=== PATIENT | male | born 1950 | race Caucasian/White ===

== ENCOUNTER 2019-02-01 20:41 | Inpatient (IN) | payer MEDICARE, OTHER ==
[~2019-02-01] VITALS: Ht 162.6 cm; Wt 77.6 kg
[~2019-02-01 20:41] MED LIST: ASPI-817 PO; ASPI325T29 PO; ATEN50TA PO; ATOR10TA65 PO; ATOR40TA68 PO; CHOL100062 PO; EMPA25TA PO; FER325 PO; FLUT16SP17 NASAL; GABA300C16 PO; LEVO750T25 PO; LORA10TA3 PO; LOSA25TA2 PO; LOSA50TA14 PO; MELO7.5O PO; METO-448 PO; PANT40TA4 PO; SERT50TA6 PO; SITA1TAB5 PO; TAMS-14 PO
[2019-02-01 20:43] VITALS: Ht 162.6 cm; Wt 77.6 kg
[2019-02-01] MEDS ORDERED: ASPIRIN 325 MG TAB PO STA (20:59)
[2019-02-01] MEDS ORDERED: ONDANSETRON 4 MG INJ IV STA (20:59)
[2019-02-01] MEDS ORDERED: NITROGLYCERIN 2% 1 GM OINT PKT TD STA (20:59)
[2019-02-01] MEDS ORDERED: morphine 4 MG/ML VIAL IV STA (20:59)
[2019-02-01] MEDS ORDERED: SOD CHLORIDE 0.9% 500 ML IV STA (20:59)
[2019-02-01] MEDS ORDERED: ONDANSETRON 4 MG INJ IV PRN ×2 (22:30→23:00)
[2019-02-01] MEDS ORDERED: ACETAMINOPHEN 325 MG TAB PO PRN (22:30)
[2019-02-01] MEDS ORDERED: NACL 0.9% 3 ML SYG IV SCH (23:00)
[2019-02-01] MEDS ORDERED: morphine 2 MG INJ IV PRN (23:00)
[2019-02-01] MEDS ORDERED: DOCUSATE SODIUM 100 MG CAP PO PRN (23:00)
[2019-02-01] MEDS ORDERED: BISACODYL (EC) 5 MG TAB PO PRN (23:00)
[2019-02-01] MEDS ORDERED: NITROGLYCERIN (SL) 0.4 MG TAB SL PRN (23:00)
[2019-02-02] VITALS (8 sets, daily range): BP systolic 102–161; BP diastolic 55–72; PULSE 51–61; RESP 18–20
[2019-02-02] MEDS ORDERED: SALINE 0.65% 45 ML NAS SPRAY NASAL ONE (03:00)
[2019-02-02] MEDS: FLUTICASONE 0.05% 16 GM NAS SPRAY NASAL SCH ×2 (04:01→21:26)
[2019-02-02] MEDS: ASPIRIN 81 MG TAB PO SCH (09:01)
[2019-02-02] MEDS ORDERED: GLUCOSE GEL 15 GRAM TUBE PO PRN ×2 (10:00)
[2019-02-02] MEDS ORDERED: GLUCOSE GEL 15 GRAM TUBE BUCCAL PRN (10:00)
[2019-02-02] MEDS ORDERED: GLUCAGON 1 MG INJ IM PRN (10:00)
[2019-02-02] MEDS ORDERED: DEXTROSE 50% 50 ML SYRINGE IV PRN ×2 (10:00)
[2019-02-02] MEDS: INSULIN ASPART [NOVOLOG] 3 ML PEN SC SCH ×3 (11:38→21:32)
[2019-02-02] MEDS: ATORVASTATIN 40 MG TAB PO SCH (21:26)
[2019-02-02] MEDS: ACETAMINOPHEN 325 MG TAB PO PRN (21:34)
[2019-02-03] MEDS ORDERED: ACCU-CHEK XX SCH (02:00)
[2019-02-03 03:50] VITALS: BP 160/77; PULSE 50; RESP 20
[2019-02-03 07:33] VITALS: BP 163/74; PULSE 57; RESP 18
[2019-02-03] MEDS: ASPIRIN 81 MG TAB PO SCH (07:38)
[2019-02-03] MEDS: INSULIN ASPART [NOVOLOG] 3 ML PEN SC SCH ×4 (07:38→21:00)
[2019-02-03] MEDS: FLUTICASONE 0.05% 16 GM NAS SPRAY NASAL SCH ×2 (07:39→20:51)
[2019-02-03] MEDS ORDERED: SOD CHLORIDE 0.9% 100 ML ONE (08:31)
[2019-02-03] MEDS ORDERED: IOHEXOL 350MG/ML 50 ML BTL ONE ×2 (08:32)
[2019-02-03] MEDS ORDERED: NITROGLYCERIN AEROSOL (4.9 GM) ONE (09:40)
[2019-02-03] MEDS ORDERED: METOPROLOL 5 MG INJ ONE (10:08)
[2019-02-03 12:00] VITALS: BP 132/69; PULSE 62; RESP 18
[2019-02-03 15:34] VITALS: BP 135/73; PULSE 70; RESP 18
[2019-02-03 20:00] VITALS: BP 159/68; PULSE 59; RESP 17
[2019-02-03] MEDS: ATORVASTATIN 40 MG TAB PO SCH (20:51)
[2019-02-03] MEDS: ACETAMINOPHEN 325 MG TAB PO PRN (20:55)
[2019-02-03] MEDS: DEXTROSE 5%-0.45% NACL 1,000 ML IV SCH (23:58)
[2019-02-04] VITALS (15 sets, daily range): BP systolic 115–155; BP diastolic 66–86; PULSE 52–78; RESP 17–21
[2019-02-04] MEDS: INSULIN ASPART [NOVOLOG] 3 ML PEN SC SCH ×4 (08:00→21:00)
[2019-02-04] MEDS: FLUTICASONE 0.05% 16 GM NAS SPRAY NASAL SCH ×2 (08:45→21:40)
[2019-02-04] MEDS: ASPIRIN 81 MG TAB PO SCH (09:00)
[2019-02-04] MEDS ORDERED: POTASSIUM CHLORIDE 20 MEQ POWDER FOR ORAL SOLN PO ONE (09:00)
[2019-02-04] MEDS ORDERED: MAGNESIUM SULFATE 2 GM/50 ML 50 ML IVPB ONE (09:00)
[2019-02-04] MEDS ORDERED: FENTAnyl 50 MCG/ML VIAL ONE (14:22)
[2019-02-04] MEDS ORDERED: LIDOCAINE 1% (MDV) 20 ML INJ ONE (14:22)
[2019-02-04] MEDS ORDERED: MIDAZOLAM 1 MG/ML 2 ML INJ ONE (14:23)
[2019-02-04] MEDS ORDERED: NITROGLYCERIN (IC) 100 MCG/ML INJ ONE (14:24)
[2019-02-04] MEDS ORDERED: HEPARIN 1000 UNITS/ML 10 ML INJ ONE (14:24)
[2019-02-04] MEDS ORDERED: VERAPAMIL 5 MG INJ ONE (14:24)
[2019-02-04] MEDS ORDERED: IODIXANOL LOCM 100 ML BTL ONE (14:33)
[2019-02-04] MEDS ORDERED: IOHEXOL 350MG/ML 50 ML BTL ONE (14:39)
[2019-02-04] MEDS: ATORVASTATIN 40 MG TAB PO SCH (21:40)
[2019-02-04] MEDS: ACETAMINOPHEN 325 MG TAB PO PRN (22:08)
[2019-02-05] VITALS: BP 141/80; PULSE 82; RESP 18
[2019-02-05] MEDS: DEXTROSE 5%-0.45% NACL 1,000 ML IV SCH (01:18)
[2019-02-05 03:46] VITALS: BP 159/76; PULSE 57; RESP 18
[2019-02-05 07:48] VITALS: BP 128/67; RESP 22
[2019-02-05] MEDS: INSULIN ASPART [NOVOLOG] 3 ML PEN SC SCH ×4 (08:09→21:17)
[2019-02-05] MEDS: ASPIRIN 81 MG TAB PO SCH (08:42)
[2019-02-05] MEDS: FLUTICASONE 0.05% 16 GM NAS SPRAY NASAL SCH ×2 (08:42→21:05)
[2019-02-05 11:44] VITALS: BP 153/72; PULSE 68; RESP 17
[2019-02-05 16:06] VITALS: BP 164/86; PULSE 86; RESP 17
[2019-02-05 20:00] VITALS: BP 159/72; PULSE 68; RESP 18
[2019-02-05] MEDS ORDERED: TAMSULOSIN (SR) 0.4 MG CAP PO SCH (21:00)
[2019-02-05] MEDS: ATORVASTATIN 40 MG TAB PO SCH (21:06)
[2019-02-05] MEDS ORDERED: CEFAZOLIN 2 GM/50 ML (PMX) 50 ML IVPB SCH (22:00)
[2019-02-06] VITALS (53 sets, daily range): BP systolic 92–139; BP diastolic 43–77; PULSE 66–89; RESP 14–28; TEMP 97.9–100.9
[2019-02-06] MEDS ORDERED: CEFAZOLIN 2 GM/50 ML (PMX) 50 ML IVPB SCH (04:00)
[2019-02-06] MEDS ORDERED: GELATIN SIZE 100 SPONGE ONE (06:15)
[2019-02-06] MEDS ORDERED: VANCOMYCIN 1 GM INJ ONE (06:15)
[2019-02-06] MEDS ORDERED: HEPARIN 1000 UNITS/ML 10 ML INJ ONE ×3 (06:15→08:15)
[2019-02-06] MEDS ORDERED: PAPAVERINE 60 MG INJ ONE (06:15)
[2019-02-06] MEDS ORDERED: THROMBIN 5000 UNIT (RECOTHROM) VIAL ONE (06:15)
[2019-02-06] MEDS ORDERED: NORepinephrine 8MG/250 ML (PMX 250 ML IV ONE (07:00)
[2019-02-06] MEDS ORDERED: INSULIN HUMAN REGULAR 100 UNIT in SOD CHLORIDE 0.9% 99 ML IVPB ONE (07:00)
[2019-02-06] MEDS ORDERED: PHENYLephrine 20MG IN 250 ML 250 ML IV ONE (07:00)
[2019-02-06] MEDS ORDERED: MILRINONE LACTATE 2 MG in SOD CHLORIDE 0.9% 50 ML IV ONE (07:00)
[2019-02-06] MEDS ORDERED: HEPARIN (10000 UNITS/ML) 10,000 UNIT, MILRINONE LACTATE 10 MG in SOD CHLORIDE 0.9% 1,00... SC ONE (07:00)
[2019-02-06] MEDS ORDERED: ASPIRIN 600 MG SUPP PR ONE (07:00)
[2019-02-06] MEDS ORDERED: EPINEPHrine 4 MG in DEXTROSE 5% 246 ML IV ONE (07:00)
[2019-02-06] MEDS ORDERED: ISOFLURANE 15 MIN ONE (07:15)
[2019-02-06] MEDS ORDERED: DOPamine-D5W 1.6 MG/ML 250 ML ONE (07:15)
[2019-02-06] MEDS ORDERED: NITROGLYCERIN 50 MG/D5W 250 ML BTL ONE (07:15)
[2019-02-06] MEDS ORDERED: MIDAZOLAM 5 ML ONE (07:16)
[2019-02-06] MEDS ORDERED: MAGNESIUM SULFATE (MG) 50% 10 ML INJ ONE (07:28)
[2019-02-06] MEDS ORDERED: POTASSIUM CHLORIDE 40 MEQ INJ ONE (07:28)
[2019-02-06] MEDS ORDERED: NA BICARBONATE 8.4% 50 ML SYG ONE (07:28)
[2019-02-06] MEDS ORDERED: LIDOCAINE 100 MG SYRINGE ONE (07:28)
[2019-02-06] MEDS ORDERED: PHENYLephrine 10 MG INJ ONE (07:28)
[2019-02-06] MEDS ORDERED: CEFAZOLIN 1 GM INJ ONE (08:00)
[2019-02-06] MEDS ORDERED: PROTAMINE 250 MG INJ ONE (10:14)
[2019-02-06] MEDS ORDERED: ROCURONIUM 50 MG INJ ONE (10:38)
[2019-02-06] MEDS ORDERED: LIDOCAINE 2% (SDV) 5 ML INJ ONE (10:38)
[2019-02-06] MEDS ORDERED: ETOMIDATE 20 MG INJ ONE (10:38)
[2019-02-06] MEDS ORDERED: INSULIN HUMAN REGULAR 100 UNIT in SOD CHLORIDE 0.9% 99 ML IV SCH (11:00)
[2019-02-06] MEDS ORDERED: ONDANSETRON 4 MG INJ IV PRN ×2 (11:00→11:30)
[2019-02-06] MEDS: ACCU-CHEK XX SCH ×14 (11:00→23:56)
[2019-02-06] MEDS ORDERED: DOPamine-D5W 1.6 MG/ML 250 ML IV SCH (11:00)
[2019-02-06] MEDS ORDERED: DEXTROSE 50% 50 ML SYRINGE IV PRN ×2 (11:00)
[2019-02-06] MEDS ORDERED: HYDROmorphONE 0.5 MG/0.5 ML SYG IV PRN (11:00)
[2019-02-06] MEDS ORDERED: NITROGLYCERIN 50 MG/D5W (PMX) 250 ML IV SCH ×2 (11:00→11:30)
[2019-02-06] MEDS ORDERED: OXYCODONE/ACETAMINOPHEN (5/325) TAB PO PRN (11:00)
[2019-02-06] MEDS ORDERED: DIPHENHYDRAMINE 50 MG INJ IV PRN (11:30)
[2019-02-06] MEDS ORDERED: METOCLOPRAMIDE 10 MG INJ IV PRN (11:30)
[2019-02-06] MEDS ORDERED: PHENYLephrine 20MG IN 250 ML 250 ML IV SCH (11:30)
[2019-02-06] MEDS ORDERED: morphine 2 MG INJ IV PRN (11:30)
[2019-02-06] MEDS ORDERED: FENTAnyl 50 MCG/ML VIAL IV PRN ×2 (11:30)
[2019-02-06] MEDS ORDERED: MEPERIDINE 25 MG INJ IV PRN (11:30)
[2019-02-06] MEDS ORDERED: MAGNESIUM SULFATE 2 GM/50 ML ONE (11:35)
[2019-02-06] MEDS ORDERED: MAGNESIUM SULFATE 2 GM/50 ML 50 ML IVPB ONE ×2 (12:00→14:00)
[2019-02-06] MEDS: CEFAZOLIN 1 GM/50 ML (PMX) 50 ML IVPB SCH ×2 (12:37→19:37)
[2019-02-06] MEDS: morphine 2 MG INJ IV PRN ×3 (12:51→13:12)
[2019-02-06] MEDS: POTASSIUM CHLORIDE 40 MEQ, CALCIUM CHLORIDE 10% 1 GM in DEXTROSE 5%-0.225% NACL 1,000 ML IV SCH (13:29)
[2019-02-06] MEDS: ALBUMIN HUMAN 5% 250 ML IV SCH ×2 (16:52→17:51)
[2019-02-06] MEDS ORDERED: ACETAMINOPHEN 1000MG/100ML IV 100 ML IVPB PRN (17:00)
[2019-02-06] MEDS ORDERED: ACETAMINOPHEN 1000MG/100ML IV 100 ML IVPB SCH (17:00)
[2019-02-06] MEDS ORDERED: FAMOTIDINE 20 MG INJ IV SCH (20:00)
[2019-02-06] MEDS: ATORVASTATIN 40 MG TAB PO SCH (20:06)
[2019-02-06] MEDS: FAMOTIDINE 20 MG TAB PO SCH (20:06)
[2019-02-06] MEDS: POTASSIUM CHLORIDE 50 ML IVPB PRN (20:46)
[2019-02-06] MEDS: HYDROmorphONE 0.5 MG/0.5 ML SYG IV PRN ×2 (21:20→22:09)
[2019-02-07] VITALS (63 sets, daily range): BP systolic 100–152; BP diastolic 49–98; PULSE 70–95; RESP 10–36; TEMP 99.3–100.4
[2019-02-07] MEDS: ACCU-CHEK XX SCH ×9 (01:00→08:14)
[2019-02-07] MEDS: CEFAZOLIN 1 GM/50 ML (PMX) 50 ML IVPB SCH (02:54)
[2019-02-07] MEDS: OXYCODONE/ACETAMINOPHEN (5/325) TAB PO PRN ×4 (03:27→18:59)
[2019-02-07] MEDS: POTASSIUM CHLORIDE 40 MEQ, CALCIUM CHLORIDE 10% 1 GM in DEXTROSE 5%-0.225% NACL 1,000 ML IV SCH (04:03)
[2019-02-07] MEDS: MAGNESIUM SULFATE 1 GM/D5W 100 ML IVPB PRN ×2 (06:07→07:40)
[2019-02-07] MEDS: FAMOTIDINE 20 MG TAB PO SCH ×2 (08:13→21:07)
[2019-02-07] MEDS: ASPIRIN 325 MG TAB PO SCH (08:13)
[2019-02-07] MEDS: ENOXAPARIN 40 MG/0.4 ML SYG SC SCH (08:14)
[2019-02-07] MEDS: POTASSIUM CHLORIDE 50 ML IVPB PRN (08:51)
[2019-02-07] MEDS ORDERED: INSULIN GLARGINE [LANTus] (100 UNITS/ML) SYG SC ONE (09:30)
[2019-02-07] MEDS: METOPROLOL 25 MG TAB PO SCH ×2 (09:46→21:08)
[2019-02-07] MEDS ORDERED: GLUCOSE GEL 15 GRAM TUBE BUCCAL PRN (10:00)
[2019-02-07] MEDS ORDERED: DEXTROSE 50% 50 ML SYRINGE IV PRN ×2 (10:00)
[2019-02-07] MEDS ORDERED: GLUCAGON 1 MG INJ IM PRN (10:00)
[2019-02-07] MEDS ORDERED: GLUCOSE GEL 15 GRAM TUBE PO PRN ×2 (10:00)
[2019-02-07] MEDS: KETOROLAC 15 MG INJ IV PRN ×2 (11:22→22:46)
[2019-02-07] MEDS: INSULIN ASPART [NOVOLOG] 3 ML PEN SC SCH ×3 (11:25→21:00)
[2019-02-07] MEDS: ACETAMINOPHEN 325 MG TAB PO PRN (15:18)
[2019-02-07] MEDS ORDERED: SOD CHLORIDE 0.9% 500 ML IV ONE (15:30)
[2019-02-07] MEDS ORDERED: morphine 2 MG INJ IV STA (15:59)
[2019-02-07] MEDS: TAMSULOSIN (SR) 0.4 MG CAP PO SCH (21:08)
[2019-02-07] MEDS: ATORVASTATIN 40 MG TAB PO SCH (21:08)
[2019-02-08 04:00] VITALS: BP 137/66; PULSE 87; RESP 20
[2019-02-08 07:11] VITALS: BP 158/69; PULSE 87; RESP 19
[2019-02-08] MEDS: INSULIN ASPART [NOVOLOG] 3 ML PEN SC SCH ×4 (07:54→20:42)
[2019-02-08] MEDS: FAMOTIDINE 20 MG TAB PO SCH ×2 (08:37→20:37)
[2019-02-08] MEDS: ASPIRIN 325 MG TAB PO SCH (08:38)
[2019-02-08] MEDS: METOPROLOL 25 MG TAB PO SCH ×2 (08:38→20:37)
[2019-02-08] MEDS: OXYCODONE/ACETAMINOPHEN (5/325) TAB PO PRN ×2 (08:38→22:11)
[2019-02-08] MEDS: ENOXAPARIN 40 MG/0.4 ML SYG SC SCH (10:06)
[2019-02-08] MEDS: INSULIN GLARGINE [LANTus] (100 UNITS/ML) SYG SC SCH (10:42)
[2019-02-08 11:33] VITALS: BP 128/74; PULSE 68; RESP 19
[2019-02-08] MEDS ORDERED: LACTULOSE 30ML CUP PO ONE (12:30)
[2019-02-08] MEDS: DOCUSATE SODIUM 250 MG CAP PO SCH (13:30)
[2019-02-08 15:24] VITALS: BP 149/73; PULSE 75; RESP 18
[2019-02-08] MEDS: ACETAMINOPHEN 325 MG TAB PO PRN (17:28)
[2019-02-08 20:00] VITALS: BP 155/74; PULSE 78; RESP 18
[2019-02-08] MEDS: ATORVASTATIN 40 MG TAB PO SCH (20:37)
[2019-02-08] MEDS: TAMSULOSIN (SR) 0.4 MG CAP PO SCH (20:37)
[2019-02-08 23:55] VITALS: BP 153/72; PULSE 83; RESP 18
[2019-02-09 04:28] VITALS: BP 142/81; PULSE 77; RESP 18
[2019-02-09 07:39] VITALS: BP 161/86; PULSE 89; RESP 18
[2019-02-09] MEDS: INSULIN ASPART [NOVOLOG] 3 ML PEN SC SCH ×4 (08:26→21:14)
[2019-02-09] MEDS: INSULIN GLARGINE [LANTus] (100 UNITS/ML) SYG SC SCH (08:26)
[2019-02-09] MEDS: DOCUSATE SODIUM 250 MG CAP PO SCH (08:38)
[2019-02-09] MEDS: ASPIRIN 325 MG TAB PO SCH (08:38)
[2019-02-09] MEDS: FAMOTIDINE 20 MG TAB PO SCH ×2 (08:39→21:06)
[2019-02-09] MEDS: METOPROLOL 25 MG TAB PO SCH ×2 (08:39→21:06)
[2019-02-09] MEDS: LOSARTAN 50 MG TAB PO SCH (08:39)
[2019-02-09] MEDS: OXYCODONE/ACETAMINOPHEN (5/325) TAB PO PRN ×2 (08:40→22:30)
[2019-02-09] MEDS: ENOXAPARIN 40 MG/0.4 ML SYG SC SCH (09:59)
[2019-02-09] MEDS ORDERED: PHENAZOPYRIDINE 100 MG TAB PO PRN (11:30)
[2019-02-09 11:44] VITALS: BP 139/73; PULSE 76; RESP 18
[2019-02-09 15:26] VITALS: BP 112/61; PULSE 80; RESP 18
[2019-02-09] MEDS: metFORMIN 500 MG TAB PO SCH (18:33)
[2019-02-09 19:17] VITALS: BP 130/74; PULSE 86; RESP 18
[2019-02-09] MEDS: ATORVASTATIN 40 MG TAB PO SCH (21:06)
[2019-02-09] MEDS: TAMSULOSIN (SR) 0.4 MG CAP PO SCH (21:06)
[2019-02-10 00:33] VITALS: BP 135/75; PULSE 83; RESP 18
[2019-02-10 03:54] VITALS: BP 138/69; PULSE 80; RESP 18
[2019-02-10 07:33] VITALS: BP 137/79; PULSE 92; RESP 20
[2019-02-10] MEDS: metFORMIN 500 MG TAB PO SCH ×2 (08:01→17:19)
[2019-02-10] MEDS: INSULIN ASPART [NOVOLOG] 3 ML PEN SC SCH ×4 (08:09→20:59)
[2019-02-10] MEDS: INSULIN GLARGINE [LANTus] (100 UNITS/ML) SYG SC SCH (08:10)
[2019-02-10] MEDS: ASPIRIN 325 MG TAB PO SCH (09:09)
[2019-02-10] MEDS: DOCUSATE SODIUM 250 MG CAP PO SCH (09:11)
[2019-02-10] MEDS: FAMOTIDINE 20 MG TAB PO SCH ×2 (09:11→20:59)
[2019-02-10] MEDS: LOSARTAN 50 MG TAB PO SCH (09:12)
[2019-02-10] MEDS: METOPROLOL 25 MG TAB PO SCH ×2 (09:12→20:59)
[2019-02-10] MEDS: ENOXAPARIN 40 MG/0.4 ML SYG SC SCH (09:16)
[2019-02-10] MEDS ORDERED: MAGNESIUM SULFATE 2 GM/50 ML 50 ML IVPB ONE (09:30)
[2019-02-10 11:38] VITALS: BP 121/67; PULSE 81; RESP 20
[2019-02-10] MEDS ORDERED: LIDOCAINE 2% 20 ML UROJET SYRINGE MM ONE (13:30)
[2019-02-10 15:50] VITALS: BP 138/71; PULSE 82; RESP 20
[2019-02-10 20:22] VITALS: BP 143/73; PULSE 85; RESP 18
[2019-02-10] MEDS: TAMSULOSIN (SR) 0.4 MG CAP PO SCH (20:58)
[2019-02-10] MEDS: ATORVASTATIN 40 MG TAB PO SCH (20:58)
[2019-02-11 00:33] VITALS: BP 136/71; PULSE 79; RESP 18
[2019-02-11 04:34] VITALS: BP 131/76; PULSE 87; RESP 18
[2019-02-11 07:47] VITALS: BP 134/74; PULSE 86; RESP 20
[2019-02-11] MEDS: metFORMIN 500 MG TAB PO SCH ×2 (08:50→17:12)
[2019-02-11] MEDS: FAMOTIDINE 20 MG TAB PO SCH ×2 (08:50→21:01)
[2019-02-11] MEDS: ASPIRIN 325 MG TAB PO SCH (08:50)
[2019-02-11] MEDS: TAMSULOSIN (SR) 0.4 MG CAP PO SCH ×2 (08:50→21:01)
[2019-02-11] MEDS: LOSARTAN 50 MG TAB PO SCH (08:51)
[2019-02-11] MEDS: METOPROLOL 25 MG TAB PO SCH ×2 (08:51→21:02)
[2019-02-11] MEDS: DOCUSATE SODIUM 250 MG CAP PO SCH (08:52)
[2019-02-11] MEDS: ENOXAPARIN 40 MG/0.4 ML SYG SC SCH (09:02)
[2019-02-11] MEDS: INSULIN GLARGINE [LANTus] (100 UNITS/ML) SYG SC SCH (09:02)
[2019-02-11] MEDS: INSULIN ASPART [NOVOLOG] 3 ML PEN SC SCH ×4 (09:02→21:00)
[2019-02-11 11:38] VITALS: BP 94/52; PULSE 81; RESP 20
[2019-02-11 15:21] VITALS: BP 107/64; PULSE 88; RESP 20
[2019-02-11 20:00] VITALS: BP 115/67; PULSE 80; RESP 18
[2019-02-11] MEDS: ATORVASTATIN 40 MG TAB PO SCH (21:01)
[2019-02-12] VITALS (7 sets, daily range): BP systolic 106–133; BP diastolic 58–65; PULSE 75–90; RESP 18–19
[2019-02-12] MEDS: INSULIN ASPART [NOVOLOG] 3 ML PEN SC SCH ×4 (08:00→20:44)
[2019-02-12] MEDS: ASPIRIN 325 MG TAB PO SCH (08:41)
[2019-02-12] MEDS: FAMOTIDINE 20 MG TAB PO SCH ×2 (08:41→20:37)
[2019-02-12] MEDS: DOCUSATE SODIUM 250 MG CAP PO SCH (08:41)
[2019-02-12] MEDS: TAMSULOSIN (SR) 0.4 MG CAP PO SCH ×2 (08:41→20:38)
[2019-02-12] MEDS: LOSARTAN 25 MG TAB PO SCH (08:42)
[2019-02-12] MEDS: metFORMIN 500 MG TAB PO SCH ×2 (08:43→18:36)
[2019-02-12] MEDS: METOPROLOL 25 MG TAB PO SCH ×2 (08:43→20:38)
[2019-02-12] MEDS: ENOXAPARIN 40 MG/0.4 ML SYG SC SCH (08:52)
[2019-02-12] MEDS: INSULIN GLARGINE [LANTus] (100 UNITS/ML) SYG SC SCH (08:52)
[2019-02-12] MEDS: ATORVASTATIN 40 MG TAB PO SCH (20:37)
[2019-02-13] VITALS: BP 122/65; PULSE 85; RESP 20
[2019-02-13 04:13] VITALS: BP 124/74; PULSE 88; RESP 18
[2019-02-13 07:23] VITALS: BP 113/58; PULSE 82; RESP 19
[2019-02-13] MEDS: metFORMIN 500 MG TAB PO SCH (07:56)
[2019-02-13] MEDS: INSULIN ASPART [NOVOLOG] 3 ML PEN SC SCH (08:10)
[2019-02-13] MEDS: DOCUSATE SODIUM 250 MG CAP PO SCH (09:03)
[2019-02-13] MEDS: FAMOTIDINE 20 MG TAB PO SCH (09:03)
[2019-02-13] MEDS: TAMSULOSIN (SR) 0.4 MG CAP PO SCH (09:03)
[2019-02-13] MEDS: METOPROLOL 25 MG TAB PO SCH (09:03)
[2019-02-13] MEDS: ASPIRIN 325 MG TAB PO SCH (09:03)
[2019-02-13] MEDS: LOSARTAN 25 MG TAB PO SCH (09:04)
[2019-02-13] MEDS: ENOXAPARIN 40 MG/0.4 ML SYG SC SCH (09:11)
[2019-02-13] MEDS: INSULIN GLARGINE [LANTus] (100 UNITS/ML) SYG SC SCH (09:11)
[2019-02-13 11:36] VITALS: BP 114/64; PULSE 72; RESP 18
== END 2019-02-13 13:47 | disposition home or self-care (01) | DRG 233 ==
LOC: E/R 20:41 → 6WM 22:21 → OBSVTOIN 02-03 15:31 → ICU 02-06 10:07 → 6WM 02-07 18:47
PROVIDERS: ADMIT Family Medicine; ATTEND Internal Medicine
PROC: B211YZZ Fluoroscopy of Multiple Coronary Arteries using Other Contrast (ICD-10-PCS; 2019-02-04)
PROC: 021109W Bypass Coronary Artery, Two Arteries from Aorta with Autologous Venous Tissue, Open Approach (ICD-10-PCS; 2019-02-06)
PROC: 06BP4ZZ Excision of Right Saphenous Vein, Percutaneous Endoscopic Approach (ICD-10-PCS; 2019-02-06)
PROC: 4A133R1 Monitoring of Arterial Saturation, Peripheral, Percutaneous Approach (ICD-10-PCS; 2019-02-06)
PROC: 02100Z9 Bypass Coronary Artery, One Artery from Left Internal Mammary, Open Approach (ICD-10-PCS; principal; 2019-02-06 07:30)
PROC: 0T9B70Z Drainage of Bladder with Drainage Device, Via Natural or Artificial Opening (ICD-10-PCS; 2019-02-12)
DX: I25.110 Atherosclerotic heart disease of native coronary artery with unstable angina pectoris (principal); J95.821 Acute postprocedural respiratory failure; N17.9 Acute kidney failure, unspecified; T81.10XA Postprocedural shock unspecified, initial encounter; I10 Essential (primary) hypertension; E11.40 Type 2 diabetes mellitus with diabetic neuropathy, unspecified; E78.5 Hyperlipidemia, unspecified; N40.1 Benign prostatic hyperplasia with lower urinary tract symptoms; R33.8 Other retention of urine; R35.1 Nocturia; I25.2 Old myocardial infarction; J44.9 Chronic obstructive pulmonary disease, unspecified; N31.9 Neuromuscular dysfunction of bladder, unspecified; E83.42 Hypomagnesemia; Z82.49 Family history of ischemic heart disease and other diseases of the circulatory system
CPT/HCPCS: 36415; 36592; 36600; 70360; 71045; 75574; 76775; 80048; 80053; 80061; 80069; 81001; 81003; 82550; 82553; 82803; 82962; 83036; 83735; 84100; 84484; 85014; 85025; 85610; 85730; 86850; 86900; 86901; 86920; 87081; 87086; 93005; 93306; 93312; 93325; 93454; 93880; 94002; 97110; 97116; 97162; 97530; G0378; A4310; C1887; J0131; J0171; J0690; J1170; J1265; J1644; J1650; J1815; J1885; J2001; J2250; J2260; J2270; J2370; J2405; J2440; J2720; J3010; J3370; J3475; J3480; J7030; J7040; J7042; J7070; P9045; Q9967